=== PATIENT | female | born 1975 | race Asian ===

== ENCOUNTER 2017-12-09 17:04 | Outpatient (CLI) | payer BC | END 2017-12-09 22:23 | disposition home or self-care (01) | LOC: RAD 17:04 | DX: R07.89 Other chest pain (principal) ==

== ENCOUNTER 2018-07-26 15:09 | Outpatient (CLI) | payer BC | END 2018-07-26 22:34 | disposition home or self-care (01) | LOC: RAD 15:09 | DX: M25.531 Pain in right wrist (principal) ==

== ENCOUNTER 2019-06-15 11:10 | Outpatient (CLI) | payer BC | END 2019-06-15 23:22 | disposition home or self-care (01) | LOC: RESP 11:10 | DX: I10 Essential (primary) hypertension (principal) | CPT/HCPCS: 93306 ==

== ENCOUNTER 2020-11-11 11:24 | Outpatient (CLI) | payer BC ==
[2020-11-11 11:43] LABS: PLATELET COUNT 249 K/uL (152-353)
[2020-11-11 12:05] LABS: POTASSIUM 3.7 mmol/L (3.6-5.2)
== END 2020-11-11 19:19 | disposition home or self-care (01) ==
LOC: LABW 11:24
PROVIDERS: ATTEND Internal Medicine
DX: I10 Essential (primary) hypertension (principal); E78.00 Pure hypercholesterolemia, unspecified
CPT/HCPCS: 36415; 80053; 80061; 81000; 84439; 84443; 85027

== ENCOUNTER 2021-12-12 12:36 | Outpatient (CLI) | payer BC ==
[2021-12-12 13:19] LABS: PLATELET COUNT 298 K/uL (152-353)
[2021-12-12 13:31] LABS: POTASSIUM 4.1 mmol/L (3.6-5.2)
== END 2021-12-12 20:03 | disposition home or self-care (01) ==
LOC: LABW 12:36
PROVIDERS: ATTEND Internal Medicine
DX: I10 Essential (primary) hypertension (principal); D57.3 Sickle-cell trait
CPT/HCPCS: 36415; 80053; 80061; 81000; 84439; 84443; 85027